=== PATIENT | female | born 1975 | race Caucasian/White ===

== ENCOUNTER 2019-09-02 19:03 | Emergency (ER) | payer OTHER ==
[~2019-09-02] VITALS: Ht 175.3 cm; Wt 100.2 kg
[2019-09-02 19:03] VITALS: BP_SYST 144
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
--- NOTE | 2019-09-02 19:30 | NUR ---
Dr. Chang at bedside.
--- NOTE | 2019-09-02 20:25 | NUR ---
Pt continues to c/o pain. Dr. Chang notified. Pt to be medicated.
[2019-09-02] MEDS ORDERED: MORPHINE 2 MG/ML INJ. SYRINGE IVP ONE ×2 (20:30→22:30)
--- NOTE | 2019-09-02 21:24 | NUR ---
Pt to X-ray via stretcher.
--- NOTE | 2019-09-02 22:00 | NUR ---
Note [facility] in EDM - 09/03/19 at 0554 by DIANA Patient given written and verbal discharge instructions and verbalizes understanding. ER discussed with patient the results and treatment provided. Patient in stable condition. ID arm band removed. IV catheter removed intact and dressing applied, no active bleeding. Rx of Motrin and [place] given. Patient educated on pain management and to follow up with PMD. Pain Scale 3/10. Opportunity for questions provided and answered. Medication side effect fact sheet provided.
[2019-09-02] MEDS ORDERED: MORPHINE 2 MG/ML INJ. SYRINGE IM ONE ×2 (22:15→23:15)
--- NOTE | 2019-09-02 22:25 | NUR ---
Pt c/o 06/17 pain to right ankle. Dr. Chang notified.
--- NOTE | 2019-09-02 23:10 | NUR ---
Pt c/o 06/[address] Chang notified.
[2019-09-03] VITALS: BP_SYST 112
--- NOTE | 2019-09-03 | NUR ---
Patient given written and verbal discharge instructions and verbalizes understanding. ER MD discussed with patient the results and treatment provided. Patient in stable condition. ID arm band removed. IV catheter removed intact and dressing applied, no active bleeding. Rx of Motrin and [place] given. Patient educated on pain management and to follow up with PMD. Pain Scale 3/10. Opportunity for questions provided and answered. Medication side effect fact sheet provided.
== END 2019-09-03 | disposition home or self-care (01) ==
LOC: SED 19:03
DX: S82.61XA Displaced fracture of lateral malleolus of right fibula, initial encounter for closed fracture (principal); W01.0XXA Fall on same level from slipping, tripping and stumbling without subsequent striking against object, initial encounter; Y93.31 Activity, mountain climbing, rock climbing and wall climbing; Y92.89 Other specified places as the place of occurrence of the external cause; Y99.8 Other external cause status
CPT/HCPCS: 29515; 73564; 73610; 96372; 96374; 96376; 99283; J2270